=== PATIENT | female | born 1960 | race Caucasian/White ===

== ENCOUNTER 2018-10-13 22:37 | Emergency (ER) | payer BC ==
[2018-10-13] MEDS ORDERED: MOTRIN 400 MG ONE (23:24)
[2018-10-13] MEDS: MOTRIN 400 MG PO ONE (23:25)
--- NOTE | 2018-10-13 23:25 | ERPHSYRPT ---
- History of Present Illness Time Seen by Provider: 10/13/18 23:12 Source: patient Exam Limitations: no limitations Patient Subjective Stated Complaint: pt is alert and oriented. pt is ambulatory with a steady gait. pt comes in with c/o bilat hand and wrist injury. pt states she tripped on a crack on the floor and landed on her wrists. pt states the right is worse than the left. pt has some moderate swelling to her right wrist. no obvious discoloration noted. no abnormalities noted to pt left wrist. Ice packs placed on bilat wrists. pt denies hitting her head, or loss of consciousness. Triage Nursing Assessment: see above Physician History: Pt states, she tripped and fell, on her stretched arms, both wrist and right hand became painful, she fell on her knees, but able to walk without pain, denies other injury or complaints, no head trauma, LOC or SOB, chest pain. Occurred: just prior to arrival Method of Injury: fell Quality: constant Severity of Pain-Max: moderate Severity of Pain-Current: moderate Extremities Pain Location: wrist: bilateral, hand: right Modifying Factors: Improves With: immobilization, movement Associated Symptoms: none Allergies/Adverse Reactions: Sulfa (Sulfonamide Antibiotics) Allergy (Verified 10/13/18 23:05) Home Medications: Duloxetine HCl 30 mg [Cymbalta 30 MG Capsule] 30 mg PO DAILY 10/13/18 [ History] Gabapentin [Neurontin] 300 mg PO HS 10/13/18 [History] Glipizide 5 mg [Glucotrol 5 MG] 10 mg PO DAILY 10/13/18 [History] Losartan Potassium 50 mg [Cozaar 50 MG] 50 mg PO DAILY 10/13/18 [History] Metoprolol Succinate 100 mg [Toprol Xl 100 MG] 150 mg PO BID 10/13/18 [ History] Immunizations Up to Date: Yes - Review of Systems Constitutional: No Symptoms Ears, Nose, & Throat: No Symptoms Respiratory: No Symptoms Cardiac: No Symptoms Abdominal/Gastrointestinal: No Symptoms Musculoskeletal: Other (bilateral wrist pain, and right hand pain) Skin: No Symptoms Neurological: No Symptoms All Other Systems: Reviewed and Negative - Past Medical History Pertinent Past Medical History: Yes Neurological History: No Pertinent History ENT History: No Pertinent History Cardiac History: Hypertension Respiratory History: No Pertinent History Endocrine Medical History: Diabetes Type II, Hypothyroidism Musculoskeletal History: No Pertinent History GI Medical History: No Pertinent History History: No Pertinent History Psycho-Social History: No Pertinent History Female Reproductive Disorders: No Pertinent History - Past Surgical History Past Surgical History: Yes Neuro Surgical History: No Pertinent History Cardiac: No Pertinent History Respiratory: No Pertinent History Gastrointestinal: No Pertinent History Genitourinary: Other Musculoskeletal: Orthopedic Surgery Female Surgical History: No Pertinent History Other Surgical History: kidney stones with stents. - Social History Smoking Status: Former smoker Drug Use: none - Female History Hx Now: No - Nursing Vital Signs Nursing Vital Signs: Initial Vital Signs Temperature 98.8 F 10/13/18 22:52 Pulse Rate 78 10/13/18 22:52 Respiratory Rate 18 10/13/18 22:52 Blood Pressure 185/99 10/13/18 22:52 O2 Sat by Pulse Oximetry 97 10/13/18 22:52 Pain Scale Pain Intensity 8 - Physical Exam General Appearance: no apparent distress Eyes, Ears, Nose, Throat Exam: normal ENT inspection Neck Exam: normal inspection, non-tender Cardiovascular/Respiratory Exam: chest non-tender, normal breath sounds, heart sounds normal, no ecchymosis Abdominal Exam: non-tender, soft Back Exam: normal inspection, No CVA tenderness, No vertebral tenderness Shoulder Exam: normal inspection Elbow/Forearm Exam: normal inspection Wrist Exam: soft tissue tenderness (both dorsal wrists are tender, no deformity , good distal circulation and sensation, normal capillary refills ) Hand Exam: soft tissue tenderness (dorsal right hand, no deformity.) Neuro/Tendon Exam: normal motor functions Mental Status Exam: alert, oriented x 3 Skin Exam: normal color, warm, dry SpO2 Interpretation: normal SpO2: 97 O2 Delivery: Room Air - Course Nursing assessment & vital signs reviewed: Yes - Radiology Exams Left Wrist X-ray Interpretation: Interpreted by me, Negative Right Wrist X-ray Interpretation: Interpreted by me, Negative Right Hand X-ray Interpretation: Interpreted by me, Negative Ordered Tests: Active Orders 24 hr Category Date Time Status Sling Application STAT Care 10/14/18 01:01 Active Splint STAT Care 10/14/18 01:01 Active HAND (MINIMUM 3 VIEWS) Stat Exams 10/14/18 00:22 Taken WRIST (MIN 3 VIEWS) Stat Exams 10/14/18 00:22 Taken WRIST (MIN 3 VIEWS) Stat Exams 10/14/18 00:22 Taken Medication Summary Discontinued Medications Generic Name Dose Route Start Last Admin Trade Name Kaden PRN Reason Stop Dose Admin Ibuprofen 400 mg 10/13/18 23:20 10/13/18 23:25 Motrin 400 Mg PO 10/13/18 23:21 400 mg STAT ONE Administration Ibuprofen Confirm 10/13/18 23:24 Motrin 400 Mg Administered 10/13/18 23:25 Dose 400 mg .ROUTE .STK-MED ONE Tramadol HCl 50 mg 10/13/18 23:58 10/14/18 00:00 Ultram 50 Mg PO 10/13/18 23:59 50 mg STAT ONE Administration Tramadol HCl Confirm 10/14/18 00:00 Ultram 50 Mg Administered 10/14/18 00:01 Dose 50 mg .ROUTE .STK-MED ONE Tramadol HCl 50 mg 10/14/18 01:00 10/14/18 01:11 Ultram 50 Mg PO 10/14/18 01:01 50 mg STAT ONE Administration Tramadol HCl Confirm 10/14/18 01:11 Ultram 50 Mg Administered 10/14/18 01:12 Dose 50 mg .ROUTE .STK-MED ONE - Progress Progress: improved Progress Note: 10/14/18 01:02 We reviewed her X rays, discussed with patient, and her , her right wrist was placed in Velcro splint, and she is being discharged to rest with elevated hand, apply ice to swelling, and follow up with her physician in 3-4 days. Counseled pt/family regarding: diagnosis, need for follow-up, rad results - Departure Departure Disposition: Home Clinical Impression: Contusion of wrist, right Qualifiers: Encounter type: initial encounter Qualified Code(s): S60.211A - Contusion of right wrist, initial encounter Contusion of wrist, left Qualifiers: Encounter type: initial encounter Qualified Code(s): S60.212A - Contusion of left wrist, initial encounter Condition: Stable Critical Care Time: No Referrals: Provider,Unknown [Primary Care Provider] - Instructions: Contusion (DC), Preventing Falls, Common Wrist Injuries (DC) Additional Instructions: Rest x 2-3 days with elevated hand, apply ice to swelling, and follow up with your physician in 3-4 days, return if severe pain, swelling, sudden discoloration or coldness of the fingers! Prescriptions: Tramadol HCl 50 mg [Ultram 50 mg] 50 mg PO Q6H PRN #10 tablet PRN Reason: Pain
[2018-10-14 00:10] VITALS: BP 178/75
[2018-10-14 01:06] VITALS: O2SAT 97
[2018-10-14] MEDS ORDERED: ULTRAM 50 MG ONE ×2 (01:11)
[2018-10-14] MEDS: ULTRAM 50 MG PO ONE ×2 (01:11)
[2018-10-14 01:22] VITALS: PULSE 80
--- NOTE | 2018-10-14 07:37 | XRAY ---
Indication: Pain following fall. Comparison: None 3 views of the left wrist demonstrates mild first metacarpal multangular degenerative changes. No other bony, articular, or soft tissue abnormalities.
--- NOTE | 2018-10-14 07:37 | XRAY ---
Indication: Pain following fall. Comparison: None 3 views of the right wrist demonstrates mild first metacarpal multangular degenerative changes. No other bony, articular, or soft tissue abnormalities.
--- NOTE | 2018-10-14 07:37 | XRAY ---
Indication: Pain following fall. Comparison: None 3 views of the right hand demonstrates mild first metacarpal multangular degenerative changes. No other bony, articular, or soft tissue abnormalities.
== END 2018-10-14 01:21 | disposition home or self-care (01) ==
LOC: ED 22:37
DX: S60.211A Contusion of right wrist, initial encounter (principal); S60.212A Contusion of left wrist, initial encounter; W01.0XXA Fall on same level from slipping, tripping and stumbling without subsequent striking against object, initial encounter; I10 Essential (primary) hypertension; E03.9 Hypothyroidism, unspecified; E11.9 Type 2 diabetes mellitus without complications; Z79.4 Long term (current) use of insulin; Z79.899 Other long term (current) drug therapy; Z87.442 Personal history of urinary calculi
CPT/HCPCS: 73110; 73130; 99284; L3908; A9270-GY